=== PATIENT | female | born 1990 | race Caucasian/White ===

== ENCOUNTER 2021-01-02 06:45 | Observation (INO) ==
--- NOTE | 2021-01-02 06:55 | Emergency Department Note ---
Impression & Plan Bilateral renal colic, Hydronephrosis, PAIGE (acute kidney injury), Bilateral ureteral calculi ED Provider Note NAME: TORIN ROJAS AGE: 30 SEX: F : 1990 ARRIVES VIA: Walk-In INFORMANT: Patient, ED PROVIDER(S): Toni Rivera MD Chief Complaint: Flank pain, kidney stone HPI: Patient does present with worsening left-sided flank pain that she describes as sharp and nonradiating in the left flank. The patient denies any fevers chills but has had associated nausea that she believes is secondary to the pain. The patient was recently seen on the he did have an outpatient appointment with urology yesterday and they did discuss the possibility of placing a stent. The patient states that she is to be admitted for placement of the stent as an inpatient. The patient denies any Covid symptoms. The patient denies any recent travel or sick contacts. The patient has a known history of kidney stones for about 5 years in duration. Patient has followed with Dr. Dias most recently. The patient denies any blood in the urine. The patient had tried taking some oxycodone at home but without improvement in symptoms. The patient has not taken ibuprofen or Tylenol. The patient denies any dysuria. All PE was 1 week ago. Patient denies any alcohol or tobacco use ROS: See HPI for pertinent positives and negatives. A total of 10 systems were reviewed and otherwise negative. Past medical history: See below Surgical history: See below Social history: See below Physical Exam: GENERAL: Wearing glasses and a mask. NAD, non-toxic. EYE EXAM: Normal conjunctiva. PERRL, no anisocoria and EOM's grossly intact w/o pain. NECK: Supple, no nuchal rigidity, no adenopathy, non-tender. No signs of meningismus. LUNGS: Clear to auscultation. Normal chest wall mechanics. HEART: NSR, no MRG. ABDOMEN: Abdomen soft, left-sided flank discomfort without peritonitis, normo- active bowel sounds, no masses, no rebound or guarding. BACK: No CVA TTP. SKIN: No rashes and no bruising. UPPER EXTREMITIES: Upper extremities are grossly normal. LOWER EXTREMITIES: Grossly normal, no edema. NEURO EXAM: A&O x3, cranial nerves II-XII grossly intact, normal speech, moves all 4 extremities on command w/o issue. Differential diagnoses: Renal colic, UTI, appendicitis, diverticulitis, mesenteric ischemia, aortic pathology, infections, inflammatory bowel disease, PUD, biliary pathology, as well as other pathologies. Course: Patient was seen and evaluated the bedside. Full history physical exam was p erformed. EKG: None Imaging Studies: See below Cardiac monitoring: An order was placed for continuous cardiac monitoring. The monitor shows a rate of 72 with sinus rhythm. MDM: Patient did present with concern for flank pain. Blood work is obtained along with a CT abdomen pelvis and the patient was treated symptomatically. Covid test also ordered. Patient has a normal white counts mild anemia with a hemoglobin 11.6 with a normal platelet count. Kidney function with a creatinine 1.3. Mild PAIGE. The patient did receive IV fluids. Calcium slightly low. Urinalysis does not show obvious infection but there is blood noted. Flu Covid RSV negative. Patient does have bilateral hydronephrosis. The patient does have a right ureteral stone 1.1 x .9 cm. The patient also does have moderate left-sided hydro with multiple mid and distal left ureteral calculi measuring up to 1.2 x 0.6 cm. I did speak the on-call urologist ISAEL Mcgrath. She did discuss the patient's case with the on-call urologist and they would like the patient admitted to medicine and they will add her to the OR schedule this afternoon for a likely ureteral stent and stone retrieval. Upon reassessment of the patient the patient did have improvement in her symptoms. Patient is nonseptic do not believe she requires antibiotics at this moment and will defer to the inpatient team as needed. Patient was admitted to the medicine service by Dr. Miranda. Past Med/Surg History Medical History Anemia Kidney stone Surgical History S/P abdominoplasty 2018 S/P gastric bypass 2010, 2016 Family History Other Breast cancer Diabetes Heart disease Hypertension Social History Smoking Status: Never smoker Preferred Language: Mongolian Feels Safe at Home: Yes Allergies Allergies Allergy/AdvReac Type Severity Reaction Status Date / Time No Known Allergies Allergy Verified 01/02/21 08:26 Home Meds Home Medications Medication Instructions Recorded Confirmed clonazepam 1 mg tablet 1 mg PO DAILY PRN 03/11/20 01/02/21 escitalopram oxalate 20 mg tablet 20 mg PO HS 06/11/20 01/02/21 tamsulosin [Flomax] 0.4 mg PO DAILY PRN 12/29/20 01/02/21 Lactobac 40-Bifido 3-S.thermop 1 cap PO HS 01/02/21 01/02/21 [Probiotic] cyanocobalamin (vitamin B-12) 0 mcg PO HS 01/02/21 01/02/21 [Vitamin B-12] omega 2-qqr-npc-fish oil [Fish Oil] 1 cap PO HS 01/02/21 01/02/21 Previous Rx's Medication Instructions Recorded oxycodone 5 mg PO Q6H PRN #14 tab 12/29/20 ciprofloxacin HCl 500 mg tablet 500 mg PO BID #14 tab 01/01/21 Results & Data (ED) Vital Signs Vital Signs - 24 hr 01/02/21 06:49 01/02/21 07:33 01/02/21 08:30 Temperature 36.5 C Temperature Source Temporal Artery Scan Pulse Rate 72 Pulse Rate [Right Finger] 62 58 L Pulse Rhythm [Right Finger] Regular Regular Pulse Strength [Right Finger] Normal Normal Respiratory Rate 18 18 18 Respiratory Effort / Characteristics Non-Labored Non-Labored Spontaneous Non-Labored Spontaneous Respiratory Depth Normal Normal Normal Respiratory Pattern Regular Regular Blood Pressure 140/95 Blood Pressure [Left Arm] 115/78 116/56 L Blood Pressure Mean 110 Blood Pressure Mean [Left Arm] 90 76 Blood Pressure Position [Left Arm] Sitting Sitting Pulse Oximetry 97 97 95 Oxygen Delivery Method Room Air Room Air Room Air Sepsis Recent Fever Within 48 Hours No Sepsis New/Unexplained Change in Mental Status No Sepsis Action Taken by Nursing No Action Required 01/02/21 08:52 Temperature Temperature Source Pulse Rate Pulse Rate [Right Finger] Pulse Rhythm [Right Finger] Pulse Strength [Right Finger] Respiratory Rate Respiratory Effort / Characteristics Respiratory Depth Respiratory Pattern Blood Pressure Blood Pressure [Left Arm] Blood Pressure Mean Blood Pressure Mean [Left Arm] Blood Pressure Position [Left Arm] Pulse Oximetry 95 Oxygen Delivery Method Room Air Sepsis Recent Fever Within 48 Hours Sepsis New/Unexplained Change in Mental Status Sepsis Action Taken by Usp Medications Current Medication List: was personally reviewed by me Laboratory Data Attestation: I reviewed the patient's lab results. Result diagrams: 01/02/21 07:25 01/02/21 07:25 Lab Results 01/02/21 01/02/21 01/02/21 Range/Units 07:25 07:25 07:36 WBC 9.66 (4.8-10.8) K/uL RBC 3.79 L (4.2-5.4) M/uL Hgb 11.6 L (12.0-16.0) g/dL Hct 35.0 L (37-47) % MCV 92.3 (80-100) fL MCH 30.6 (25-34) pg MCHC 33.1 (32-36) g/dL RDW Std Deviation 42.6 (36.4-46.3) fL RDW Coeff of Isabell 12.6 (11.5-14.5) % Plt Count 344 (130-400) K/uL MPV 8.7 (7.4-10.4) fL Immature Gran % (Auto) 0.1 % Neut % (Auto) 57.8 % Lymph % (Auto) 26.5 % [place] % (Auto) 14.2 % Eos % (Auto) 1.3 % Baso % (Auto) 0.1 % Neut # (Auto) 5.58 (1.4-6.5) K/uL Lymph # (Auto) 2.56 (1.2-3.4) K/uL [place] # (Auto) 1.37 H (0.11-0.59) K/uL Eos # (Auto) 0.13 (0-0.5) K/uL Baso # (Auto) 0.01 (0-0.2) K/uL Immature Gran # (Auto) 0.01 (0.00-0.02) K/uL Sodium 139 (136-145) mmol/L Potassium 3.6 (3.5-5.1) mmol/L Chloride 107 (98-107) mmol/L Carbon Dioxide 26 (21-32) mmol/L Anion Gap 6.0 (3-11) BUN 15 (7-18) mg/dl Creatinine 1.37 H (0.6-1.2) mg/dl Est Cr Clr Drug Dosing 68.5 ml/min Est GFR ( Amer) 60.7 Est GFR (Non-Af Amer) 52.4 BUN/Creatinine Ratio 10.8 (10-20) Glucose 89 (70-99) mg/dl Calcium 8.1 L (8.5-10.1) mg/dl Total Bilirubin 0.3 (0.2-1) mg/dl AST 18 (15-37) U/L ALT 25 (12-78) U/L Alkaline Phosphatase 111 (45-117) U/L Total Protein 6.7 (6.4-8.2) gm/dl Albumin 3.2 L (3.4-5.0) gm/dl Globulin 3.5 (2.5-4.0) gm/dl Albumin/Globulin Ratio 0.9 (0.9-2) Lipase 58 L (73-393) U/L Urine Color Yellow Urine Appearance Cloudy A (Clear) Urine pH 6.0 (4.5-7.5) Ur Specific [place] 1.012 (1.000-1.030) Urine Protein 1+ H (Negative) Urine Glucose (UA) Negative (Negative) Urine Ketones Negative (Negative) Urine Blood 3+ H (Negative) Urine Nitrite Negative (Negative) Urine Bilirubin Negative (Negative) Urine Urobilinogen Negative (Negative) Ur Leukocyte Esterase 1+ H (Negative) Urine WBC (Auto) 10-30 H (0-5) /hpf Urine RBC (Auto) >30 H (0-4) /hpf U Hyaline Cast (Auto) 0 (0-5) /lpf U Epithel Cells (Auto) 10-20 H (0-5) /lpf Urine Bacteria (Auto) Negative (Negative) Urine Test (Negative) COVID-19 Eval Order SARS-CoV-2 (PCR) (Negative) Influenza Type A (PCR) (Neg) Influenza Type B (PCR) (Neg) RSV (RT-PCR) (Neg) 01/02/21 01/02/21 01/02/21 Range/Units 07:36 07:36 07:36 WBC (4.8-10.8) K/uL RBC (4.2-5.4) M/uL Hgb (12.0-16.0) g/dL Hct (37-47) % MCV (80-100) fL MCH (25-34) pg MCHC (32-36) g/dL RDW Std Deviation (36.4-46.3) fL RDW Coeff of Isabell (11.5-14.5) % Plt Count (130-400) K/uL MPV (7.4-10.4) fL Immature Gran % (Auto) % Neut % (Auto) % Lymph % (Auto) % [place] % (Auto) % Eos % (Auto) % Baso % (Auto) % Neut # (Auto) (1.4-6.5) K/uL Lymph # (Auto) (1.2-3.4) K/uL [place] # (Auto) (0.11-0.59) K/uL Eos # (Auto) (0-0.5) K/uL Baso # (Auto) (0-0.2) K/uL Immature Gran # (Auto) (0.00-0.02) K/uL Sodium (136-145) mmol/L Potassium (3.5-5.1) mmol/L Chloride (98-107) mmol/L Carbon Dioxide (21-32) mmol/L Anion Gap (3-11) BUN (7-18) mg/dl Creatinine (0.6-1.2) mg/dl Est Cr Clr Drug Dosing ml/min Est GFR ( Amer) Est GFR (Non-Af Amer) BUN/Creatinine Ratio (10-20) Glucose (70-99) mg/dl Calcium (8.5-10.1) mg/dl Total Bilirubin (0.2-1) mg/dl AST (15-37) U/L ALT (12-78) U/L Alkaline Phosphatase (45-117) U/L Total Protein (6.4-8.2) gm/dl Albumin (3.4-5.0) gm/dl Globulin (2.5-4.0) gm/dl Albumin/Globulin Ratio (0.9-2) Lipase (73-393) U/L Urine Color Urine Appearance (Clear) Urine pH (4.5-7.5) Ur Specific [place] (1.000-1.030) Urine Protein (Negative) Urine Glucose (UA) (Negative) Urine Ketones (Negative) Urine Blood (Negative) Urine Nitrite (Negative) Urine Bilirubin (Negative) Urine Urobilinogen (Negative) Ur Leukocyte Esterase (Negative) Urine WBC (Auto) (0-5) /hpf Urine RBC (Auto) (0-4) /hpf U Hyaline Cast (Auto) (0-5) /lpf U Epithel Cells (Auto) (0-5) /lpf Urine Bacteria (Auto) (Negative) Urine Test Negative (Negative) COVID-19 Eval Order [facility]Rsv at [facility] SARS-CoV-2 (PCR) NEGATIVE (Negative) Influenza Type A (PCR) Negative (Neg) Influenza Type B (PCR) Negative (Neg) RSV (RT-PCR) Negative (Neg) Administered Medications Discontinued Medications Sodium Chloride (Nss 1000ml) 1,000 mls @ 999 mls/hr IV .[id number] ONE Stop: 01/02/21 08:08 Last Infusion: 01/02/21 08:29 Dose: 0 mls/hr Documented by: [id number] Admin: 01/02/21 07:29 Dose: 999 mls/hr Documented by: [id number] Ketorolac Tromethamine (Ketorolac 30 Mg/Ml Vial) 30 mg IV NOW STA Stop: 01/02/21 07:08 Last Admin: 01/02/21 07:29 Dose: 30 mg Documented by: [id number] Morphine Sulfate (Morphine Sulfate 4 Mg/Ml 1 Ml Carp\Vial) 4 mg IV NOW STA Stop: 01/02/21 07:08 Last Admin: 01/02/21 07:29 Dose: 4 mg Documented by: [id number] Ondansetron HCl (Ondansetron Inj 2 Mg/Ml 2 Ml Vial) 4 mg IV NOW STA Stop: 01/02/21 07:08 Last Admin: 01/02/21 07:29 Dose: 4 mg Documented by: [id number] Imaging Data Radiologist's Impression: Abdomen/Pelvis CT 01/02/21 07:07 CT OF THE ABDOMEN AND PELVIS WITHOUT CONTRAST CLINICAL HISTORY: Left flank pain. COMPARISON STUDY: Renal ultrasound and KUB December 29, 2020. TECHNIQUE: Axial images of the abdomen and pelvis were obtained without IV contrast. Images were reviewed in the axial, sagittal, and coronal planes. Automated exposure control was utilized for the study. A dose lowering technique was utilized adhering to the principles of ALARA. FINDINGS: No pneumatosis, free air or portal venous gas is present. There are postoperative findings consistent with Debbi-en-Y gastric bypass. Evaluation of the abdomen and pelvis is suboptimal on this unenhanced exam. There is focal fat within the medial segment of the liver. The spleen, adrenal glands and pancreas are unremarkable. Is no evidence for a bowel obstruction. The appendix is normal. There is no lymphadenopathy. Note is made of moderate right renal atrophy. Severe right hydronephrosis is noted. There is a 1.1 x 0.9 cm distal right ureteral calculus as well as an adjacent 0.8 cm calculus. These calculi are similar in position to KUB of December 29, 2020. Note is made of moderate left hydronephrosis due to multiple mid to distal left ureteral calculi which have migrated distally since prior KUB. The largest calculus measures 1.2 x 0.6 cm. There is mild left perinephric and periureteral infiltration. No bladder calculi are present. A few left renal calculi measure up to 7 mm. IMPRESSION: 1. Severe right hydronephrosis with no significant change in position of 2 dista l right ureteral calculi that measure up to 1.1 x 0.9 cm. Moderate right renal atrophy. 2. Moderate left hydronephrosis due to multiple mid to distal left ureteral calculi that measure up to 1.2 x 0.6 cm. Distal migration of these calculi since prior KUB. 3. Left-sided nephrolithiasis. ACT 112: Negative or not required by law. Electronically signed by: Nick Azul M.D. 01/02/2021 8:07 AM Discharge Plan Visit Data Chief Complaint: Kidney Stone Stated Complaint: KIDNEY STONES,PAIN,NAUSEA ED Provider: Toni Rivera Discharge Problem: Bilateral renal colic, Hydronephrosis, PAIGE (acute kidney injury), Bilateral ureteral calculi Patient Disposition: Admitted As Inpatient Forms Stand Alone Forms: [facility] Prescriptions Prescriptions: No Action escitalopram oxalate [Lexapro] 20 mg tablet 20 mg PO HS RF: 0 ciprofloxacin HCl 500 mg tablet 500 mg PO BID Qty: 14 RF: 0 clonazepam 1 mg tablet 1 mg PO DAILY PRN (Reason: Anxiety) RF: 0 tamsulosin [Flomax] 0.4 mg Capsule 0.4 mg PO DAILY PRN (Reason: KIDNEY STONE) RF: 0 oxycodone 5 mg tablet 5 mg PO Q6H PRN (Reason: pain) Qty: 14 RF: 0 cyanocobalamin (vitamin B-12) [Vitamin B-12] 1,000 mcg Tablet 0 mcg PO HS RF: 0 omega 9-hgz-jff-fish oil [Fish Oil] 1,200 (144-216) mg Capsule 1 cap PO HS RF: 0 Probiotic 100 billion cell Capsule 1 cap PO HS RF: 0 Referrals Referrals: Regina Manuel DO [Primary Care Provider] - Discharge Problem: Hydronephrosis Qualifiers: Hydronephrosis type: unspecified Qualified Code(s): N13.30 - Unspecified hydronephrosis
[2021-01-02] MEDS ORDERED: KETOROLAC 30 MG/ML VIAL IV STA (07:07)
[2021-01-02] MEDS ORDERED: MoRPHine SULFATE 4 MG/ML 1 ML CARP\\VIAL IV STA (07:07)
[2021-01-02] MEDS ORDERED: ONDANSETRON INJ 2 MG/ML 2 ML VIAL IV STA (07:07)
[2021-01-02] MEDS ORDERED: SODIUM CHLORIDE 0.9% 1000ML 1,000 ML IV ONE (07:08)
[2021-01-02 07:43] LABS: Basophils # (auto) 0.01 K/uL (0-0.2); Basophils % (auto) 0.1 %; Eosinophils # (auto) 0.13 K/uL (0-0.5); Eosinophils % (auto) 1.3 %; Hemoglobin 11.6 g/dL (12.0-16.0); Immature Granulocytes # (auto) 0.01 K/uL (0.00-0.02); Immature Granulocytes % (auto) 0.1 %; Lymphocytes # (auto) 2.56 K/uL (1.2-3.4); Lymphocytes % (auto) 26.5 %; Mean Corpuscular Hemoglobin 30.6 pg (25-34); Mean Corpuscular Hgb Conc 33.1 g/dL (32-36); Mean Corpuscular Volume 92.3 fL (80-100); Mean Platelet Volume 8.7 fL (7.4-10.4); Monocytes # (auto) 1.37 K/uL (0.11-0.59); Monocytes % (auto) 14.2 %; Neutrophils # (auto) 5.58 K/uL (1.4-6.5); Neutrophils % (auto) 57.8 %; Platelet Count 344 K/uL (130-400); RDW Coefficient of Variation 12.6 % (11.5-14.5); RDW Standard Deviation 42.6 fL (36.4-46.3); Red Blood Count 3.79 M/uL (4.2-5.4); White Blood Count 9.66 K/uL (4.8-10.8)
[2021-01-02 07:56] LABS: Appearance Urine Cloudy (Clear); Bacteria Urine Automated Negative (Negative); Bilirubin Urine Negative (Negative); Blood Urine 3+ (Negative); Color Urine Yellow; Glucose Urine UA Negative (Negative); Ketones Urine Negative (Negative); Leukocyte Esterase Urine 1+ (Negative); Nitrite Urine Negative (Negative); Protein Urine 1+ (Negative); RBC Urine Automated >30 /hpf (0-4); Specific Gravity Urine 1.012 (1.000-1.030); Urobilinogen Urine Negative (Negative)
[2021-01-02 07:59] LABS: Albumin Level 3.2 gm/dl (3.4-5.0); BUN Creatinine Ratio 10.8 (10-20); Calcium 8.1 mg/dl (8.5-10.1); Creatinine Clr Calc Pharmacy 68.5 ml/min; Est GFR (African American) 60.7; Est GFR (Non-African American) 52.4; Potassium 3.6 mmol/L (3.5-5.1)
[2021-01-02 08:02] LABS: Albumin Globulin Ratio 0.9 (0.9-2); Bilirubin,Total 0.3 mg/dl (0.2-1); Globulin 3.5 gm/dl (2.5-4.0); Total Protein 6.7 gm/dl (6.4-8.2)
[2021-01-02 08:08] LABS: Cast Urine Automated 0 /lpf (0-5)
--- NOTE | 2021-01-02 08:08 | CT Scan Report ---
CT OF THE ABDOMEN AND PELVIS WITHOUT CONTRAST CLINICAL HISTORY: Left flank pain. COMPARISON STUDY: Renal ultrasound and KUB December 29, 2020. TECHNIQUE: Axial images of the abdomen and pelvis were obtained without IV contrast. Images were revi ewed in the axial, sagittal, and coronal planes. Automated exposure control was utilized for the tripp dy. A dose lowering technique was utilized adhering to the principles of ALARA. FINDINGS: No pneumatosis, free air or portal venous gas is present. There are postoperative findings consistent with Debbi-en-Y gastric bypass. Evaluation of the abdomen and pelvis is suboptimal on this unenhanced exam. There is focal fat within the medial segment of the liver. The spleen, adrenal gland s and pancreas are unremarkable. Is no evidence for a bowel obstruction. The appendix is normal. Ther e is no lymphadenopathy. Note is made of moderate right renal atrophy. Severe right hydronephrosis is noted. There is a 1.1 x 0.9 cm distal right ureteral calculus as well as an adjacent 0.8 cm calculus. These calculi are simil ar in position to KUB of December 29, 2020. Note is made of moderate left hydronephrosis due to multiple mid to distal left ureteral calculi which have migrated distally since prior KUB. The largest calcul us measures 1.2 x 0.6 cm. There is mild left perinephric and periureteral infiltration. No bladder ca lculi are present. A few left renal calculi measure up to 7 mm. IMPRESSION: 1. Severe right hydronephrosis with no significant change in position of 2 distal right ureteral calc james that measure up to 1.1 x 0.9 cm. Moderate right renal atrophy. 2. Moderate left hydronephrosis due to multiple mid to distal left ureteral calculi that measure up t o 1.2 x 0.6 cm. Distal migration of these calculi since prior KUB. 3. Left-sided nephrolithiasis. ACT 112: Negative or not required by law. Electronically signed by: Nick Azul M.D. 01/02/2021 8:07 AM
[2021-01-02 08:28] LABS: Influenza A virus by PCR Negative (Neg); Influenza B virus by PCR Negative (Neg); RSV by PCR Negative (Neg); SARS CoV2 RNA(COVID-19) InHosp NEGATIVE (Negative)
[2021-01-02 08:59] LABS: Pregnancy Test, Urine Negative (Negative)
[2021-01-02] MEDS ORDERED: ATROPINE SULFATE 0.1 MG/ML 10ML SYR IV PRN (09:26)
[2021-01-02] MEDS ORDERED: fentaNYL citrate 100 MCG/2 ML VIAL IV PRN (09:26)
[2021-01-02] MEDS ORDERED: ePHEDrine sulfate 50 MG/ML AMP IV PRN (09:26)
[2021-01-02] MEDS ORDERED: ONDANSETRON INJ 2 MG/ML 2 ML VIAL IV PRN ×2 (09:26→15:52)
[2021-01-02] MEDS ORDERED: DEXAMETHASONE SOD INJ 4 MG/ML VIAL ONE (09:29)
[2021-01-02] MEDS ORDERED: PROPOFOL IV EMULSION 10 MG/ML 20 ML VIAL IV ONE (09:29)
[2021-01-02] MEDS ORDERED: ONDANSETRON INJ 2 MG/ML 2 ML VIAL ONE (09:29)
[2021-01-02] MEDS ORDERED: fentaNYL citrate 100 MCG/2 ML VIAL ONE (09:29)
[2021-01-02] MEDS ORDERED: LIDOCAINE HCL 2% 2 ML VIAL/AMP(20MG/ML) INFIL ONE (09:29)
--- NOTE | 2021-01-02 09:47 | History & Physical Report ---
Date of Service January 02, 2021 Assessment & Plan (1) Bilateral hydronephrosis: 30 yo F with hx anxiety, nephrolithiasis admitted for bilateral hydronephrosis, nephrolithiasis and ureteral calculi. 1. BL hydronephrosis 2/2 nephrolithisis s/p stent placement - CT A/P : - Severe right hydronephrosis with no significant change in position of 2 distal right ureteral calculi that measure up to 1.1 x 0.9 cm. Moderate right renal atrophy. - Moderate left hydronephrosis due to multiple mid to distal left ureteral calculi that measure up to 1.2 x 0.6 cm. Distal migration of these calculi since prior KUB. - Left-sided nephrolithiasis. - stent placement in OR by urology - pain control with morphine, oxy - zofran for nausea, tamsulosin - IVF - cefazolin Q8 Anxiety - cont escitalopram - cont clonazepam 1 mg po daily prn for severe anxiety DVT ppx: C/I after procedure FEN/GI: regular diet, IVF Code Status: full code Dispo: med/surg, possible discharge in AM pending continued improvement (2) Bilateral nephrolithiasis: (3) Bilateral ureteral calculi: (4) Anemia: (5) Anxiety: History of Present Illness 30 yo F with hx kidney stones, anxiety brought to ER for severe flank pain. Recently saw urology who recommended stent placement for relief of obstruction. Pain started Wednesday on left flank and has progressively worsened. Also attests to nausea, vomiting. Denies fevers or chills. Denies coffee ground, bloody or bilious emesis. No diarrhea. No weakness, fatigue. No dizziness, lightheadedness. No pain with urination but attests to uneven stream. Does feel the pain on left side has moved from mid-abdomen to just above left inguinal canal. ER course significant for CT A/P showing BL mod-severe hydronephrosis with BL nephrolithiasis, progression of some L sided stones that have passed distally compared to KUB on 12/29. Received 4 mg morphine, 30 mg toradol, 4 mg zofran, 1L NS bolused in ER. Patient taken to OR for stent placement with urology at completion of interview. Primary Care Provider: Regina Manuel DO Allergies Allergy/AdvReac Type Severity Reaction Status Date / Time No Known Allergies Allergy Verified 01/02/21 08:26 Home Medications Medication Instructions Recorded Confirmed Type clonazepam 1 mg tablet 1 mg PO DAILY PRN 03/11/20 01/02/21 History escitalopram oxalate 20 mg tablet 20 mg PO HS 06/11/20 01/02/21 History oxycodone 5 mg PO Q6H PRN #14 tab 12/29/20 01/02/21 Rx tamsulosin [Flomax] 0.4 mg PO DAILY PRN 12/29/20 01/02/21 History ciprofloxacin HCl 500 mg tablet 500 mg PO BID #14 tab 01/01/21 01/02/21 Rx Lactobac 40-Bifido 3-S.thermop 1 cap PO HS 01/02/21 01/02/21 History [Probiotic] cyanocobalamin (vitamin B-12) 0 mcg PO HS 01/02/21 01/02/21 History [Vitamin B-12] omega 8-jib-nrv-fish oil [Fish Oil] 1 cap PO HS 01/02/21 01/02/21 History Past Med/Surg History Medical History Anemia Kidney stone Surgical History S/P abdominoplasty 2018 S/P gastric bypass 2016 Family History Other Breast cancer Diabetes Heart disease Hypertension Social History Smoking Status: Never smoker Preferred Language: Kittitian Feels Safe at Home: Yes Assistive Devices: Glasses Review of Systems Review of Systems: All systems reviewed & are unremarkable except as noted in Subjective Physical Exam Physical Exam: Constitutional: in no apparent distress, sitting comfortably in bed, not ill appearing Eyes: EOMI, pupils equal and reactive bilaterally, no scleral icterus Cardiac: RRR, no murmurs, gallops or rubs. Normal S1, S2 Pulm: CTA BL, no wheezes, rhonchi, crackles or rubs, moving air well throughout both lungs Abd: soft, TTP at LLQ, nondistended, normal bowel sounds, no rebound or guarding Back: +L>R CVA tenderness Extremities: 2+ peripheral pulses, no edema Neuro: no focal deficits, moving all 4 limbs, A&Ox3 Results & Data Results & Data ([facility]) Vital Signs (Past 12 Hours) Vital Signs Temp Pulse Pulse Resp BP BP Pulse Ox 01/02/21 09:41 62 62 18 103/70 103/70 99 01/02/21 08:52 95 01/02/21 08:30 58 L 18 116/56 L 95 01/02/21 07:33 62 18 115/78 97 01/02/21 06:49 36.5 C 72 18 140/95 97 Laboratory Results WBC 9.66 K/uL (4.8-10.8) 01/02/21 07:25 RBC 3.79 M/uL (4.2-5.4) L 01/02/21 07:25 Hgb 11.6 g/dL (12.0-16.0) L 01/02/21 07:25 Hct 35.0 % (37-47) L 01/02/21 07:25 MCV 92.3 fL (80-100) 01/02/21 07:25 MCH 30.6 pg (25-34) 01/02/21 07:25 MCHC 33.1 g/dL (32-36) 01/02/21 07:25 RDW Std Deviation 42.6 fL (36.4-46.3) 01/02/21 07:25 RDW Coeff of [place]abell 12.6 % (11.5-14.5) 01/02/21 07:25 Plt Count 344 K/uL (130-400) 01/02/21 07:25 MPV 8.7 fL (7.4-10.4) 01/02/21 07:25 Immature Gran % (Auto) 0.1 % 01/02/21 07:25 Neut % (Auto) 57.8 % 01/02/21 07:25 Lymph % (Auto) 26.5 % 01/02/21 07:25 [place] % (Auto) 14.2 % 01/02/21 07:25 Eos % (Auto) 1.3 % 01/02/21 07:25 Baso % (Auto) 0.1 % 01/02/21 07:25 Neut # (Auto) 5.58 K/uL (1.4-6.5) 01/02/21 07:25 Lymph # (Auto) 2.56 K/uL (1.2-3.4) 01/02/21 07:25 [place] # (Auto) 1.37 K/uL (0.11-0.59) H 01/02/21 07:25 Eos # (Auto) 0.13 K/uL (0-0.5) 01/02/21 07:25 Baso # (Auto) 0.01 K/uL (0-0.2) 01/02/21 07:25 Immature Gran # (Auto) 0.01 K/uL (0.00-0.02) 01/02/21 07:25 Sodium 139 mmol/L (136-145) 01/02/21 07:25 Potassium 3.6 mmol/L (3.5-5.1) 01/02/21 07:25 Chloride 107 mmol/L (98-107) 01/02/21 07:25 Carbon Dioxide 26 mmol/L (21-32) 01/02/21 07:25 Anion Gap 6.0 (3-11) 01/02/21 07:25 BUN 15 mg/dl (7-18) 01/02/21 07:25 Creatinine 1.37 mg/dl (0.6-1.2) H 01/02/21 07:25 Est Cr Clr Drug Dosing 68.5 ml/min 01/02/21 07:25 Est GFR ( Amer) 60.7 01/02/21 07:25 Est GFR (Non-Af Amer) 52.4 01/02/21 07:25 BUN/Creatinine Ratio 10.8 (10-20) 01/02/21 07:25 Glucose 89 mg/dl (70-99) 01/02/21 07:25 Calcium 8.1 mg/dl (8.5-10.1) L 01/02/21 07:25 Total Bilirubin 0.3 mg/dl (0.2-1) 01/02/21 07:25 AST 18 U/L (15-37) 01/02/21 07:25 ALT 25 U/L (12-78) 01/02/21 07:25 Alkaline Phosphatase 111 U/L (45-117) 01/02/21 07:25 Total Protein 6.7 gm/dl (6.4-8.2) 01/02/21 07:25 Albumin 3.2 gm/dl (3.4-5.0) L 01/02/21 07:25 Globulin 3.5 gm/dl (2.5-4.0) 01/02/21 07:25 Albumin/Globulin Ratio 0.9 (0.9-2) 01/02/21 07:25 Lipase 58 U/L (73-393) L 01/02/21 07:25 Urine Color Yellow 01/02/21 07:36 Urine Appearance Cloudy (Clear) A 01/02/21 07:36 Urine pH 6.0 (4.5-7.5) 01/02/21 07:36 Ur Specific [place] 1.012 (1.000-1.030) 01/02/21 07:36 Urine Protein 1+ (Negative) H 01/02/21 07:36 Urine Glucose (UA) Negative (Negative) 01/02/21 07:36 Urine Ketones Negative (Negative) 01/02/21 07:36 Urine Blood 3+ (Negative) H 01/02/21 07:36 Urine Nitrite Negative (Negative) 01/02/21 07:36 Urine Bilirubin Negative (Negative) 01/02/21 07:36 Urine Urobilinogen Negative (Negative) 01/02/21 07:36 Ur Leukocyte Esterase 1+ (Negative) H 01/02/21 07:36 Urine WBC (Auto) 10-30 /hpf (0-5) H 01/02/21 07:36 Urine RBC (Auto) >30 /hpf (0-4) H 01/02/21 07:36 U Hyaline Cast (Auto) 0 /lpf (0-5) 01/02/21 07:36 U Epithel Cells (Auto) 10-20 /lpf (0-5) H 01/02/21 07:36 Urine Bacteria (Auto) Negative (Negative) 01/02/21 07:36 Urine Test Negative (Negative) 01/02/21 07:36 COVID-19 Eval Order CovFluRsv at [facility] 01/02/21 07:36 SARS-CoV-2 (PCR) NEGATIVE (Negative) 01/02/21 07:36 Influenza Type A (PCR) Negative (Neg) 01/02/21 07:36 Influenza Type B (PCR) Negative (Neg) 01/02/21 07:36 RSV (RT-PCR) Negative (Neg) 01/02/21 07:36 Impressions Abdomen/Pelvis CT 01/02/21 07:07 CT OF THE ABDOMEN AND PELVIS WITHOUT CONTRAST CLINICAL HISTORY: Left flank pain. COMPARISON STUDY: Renal ultrasound and KUB December 29, 2020. TECHNIQUE: Axial images of the abdomen and pelvis were obtained without IV contrast. Images were reviewed in the axial, sagittal, and coronal planes. Automated exposure control was utilized for the study. A dose lowering technique was utilized adhering to the principles of ALARA. FINDINGS: No pneumatosis, free air or portal venous gas is present. There are postoperative findings consistent with Debbi-en-Y gastric bypass. Evaluation of the abdomen and pelvis is suboptimal on this unenhanced exam. There is focal fat within the medial segment of the liver. The spleen, adrenal glands and pancreas are unremarkable. Is no evidence for a bowel obstruction. The appendix is normal. There is no lymphadenopathy. Note is made of moderate right renal atrophy. Severe right hydronephrosis is noted. There is a 1.1 x 0.9 cm distal right ureteral calculus as well as an adjacent 0.8 cm calculus. These calculi are similar in position to KUB of December 29, 2020. Note is made of moderate left hydronephrosis due to multiple mid to distal left ureteral calculi which have migrated distally since prior KUB. The largest calculus measures 1.2 x 0.6 cm. There is mild left perinephric and periureteral infiltration. No bladder calculi are present. A few left renal calculi measure up to 7 mm. IMPRESSION: 1. Severe right hydronephrosis with no significant change in position of 2 distal right ureteral calculi that measure up to 1.1 x 0.9 cm. Moderate right renal atrophy. 2. Moderate left hydronephrosis due to multiple mid to distal left ureteral calculi that measure up to 1.2 x 0.6 cm. Distal migration of these calculi since prior KUB. 3. Left-sided nephrolithiasis. ACT 112: Negative or not required by law. Electronically signed by: Nick Azul M.D. 01/02/2021 8:07 AM Supervising Physician Co-Signing Physician Notes Attending attestation Pt seen and examined in concert with Dr. Alaniz. In agreement with the documented findings as noted in the resident documentation with any exceptions or additions as noted here. Resting comfortably in bed without abdominal pain reported. Has not urinated postprocedure as yet. On examination, S1/S2 nl RRR no MCG. CTAB. Abd NT/ND BS+ve Bilateral nephrolithaisis with bilateral hydronephrosis s/p stent placement/stone removal POD#0 - continue IV abx, hydration. Monitor for fever, repeat BMP in AM. Else see resident documentation as noted. Resident Activity Tracking Resident Involvement: Resident Care Provided Care Provided: Adult [facility]
--- NOTE | 2021-01-02 09:59 | Urology Consultation ---
Date of Consultation January 02, 2021 Assessment & Plan (1) Bilateral ureteral calculi: (2) Bilateral hydronephrosis: (3) Renal colic on left side: (4) PAIGE (acute kidney injury): 30yo F admitted with intractable left flank pain, nausea, and acute kidney injury in the setting of bilateral ureteral calculi with associated bilateral hydronephrosis - ER records, labs, and CT imaging reviewed - She is afebrile, VSS, non-toxic appearing. - Labs reviewed, Wbc normal and creatinine mildly elevated to 1.37 - Discussed options for stone treatment. She is agreeable to proceeding with surgical intervention today. - Plan of care reviewed with Dr. Benedict, on-call urologist - Given her intractable left flank pain, hydronephrosis, and acute kidney injury in the context of obstructing bilateral ureteral calculi, will proceed with OR for Cystoscopy, Bilateral Ureteronephroscopy, possible stone treatment and bilateral stent placement depending on findings. Risks and benefits to be reviewed with patient by Dr. Benedict. OR notified. Will cover with IV Cipro preoperatively. Covid test negative. - Expected clinical course reviewed with patient, all questions were answered. - Keep NPO for procedure later today Attending Note: agree with above after independently evaluated and assessed. The patient is dealing with bilateral obstruction and PAIGE. Risks and benefits discussed at length for procedure. These include bleeding, infection, injury to surrounding tissues or organs, and risks associated with anesthesia. Patient states understanding and agrees to proceed. Will sign consent and schedule. Plan for urgent bilateral ureteroscopy and stone management with stents. History of Present Illness Reason for Consultation: bilateral ureteral calculi Attending Physician: Deny Benedict, II, DO History of Present Illness 30yo F who presented to the ER today with complaints of worsening left flank pain with associated nausea. CT abdomen pelvis remarkable for bilateral ureteral calculi with bilateral hydronephrosis. Patient known to urology service. She was evaluated yesterday in clinic. See office note for further details. Past medical and surgical history reviewed. History was significant for anemia and nephrolithiasis. Surgical history is notable for gastric bypass 2010 and 2017 and abdominoplasty in 2019. The patient states she has a personal history of kidney stones since 2018 and last passed one . She denies any surgical intervention in the past. She states she hasn't seen a urologist in the past. Chart review: Afebrile Wbc 9.66 Hgb 11.6 Cr 1.[address] abdomen pelvis IMPRESSION: 1. Severe right hydronephrosis with no significant change in position of 2 distal right ureteral calculi that measure up to 1.1 x 0.9 cm. Moderate right renal atrophy. 2. Moderate left hydronephrosis due to multiple mid to distal left ureteral calculi that measure up to 1.2 x 0.6 cm. Distal migration of these calculi since prior KUB. 3. Left-sided nephrolithiasis. Pt examined at bedside this morning in the preoperative holding area. She reports her pain has improved with IV pain medication given in ED. She denies fevers or chills. No nausea or vomiting. She has been NPO since midnight. She denies hematuria/dysuria. She does report some urinary frequency. Denies urgency. Feels her stream is weak. She is unsure if she is emptying her bladder completely. Not currently on any anticoagulants. Offers no additional complaints at this time Allergies Allergy/AdvReac Type Severity Reaction Status Date / Time No Known Allergies Allergy Verified 01/02/21 08:26 Home Medications Medication Instructions Recorded Confirmed Type clonazepam 1 mg tablet 1 mg PO DAILY PRN 03/11/20 01/02/21 History escitalopram oxalate 20 mg tablet 20 mg PO HS 06/11/20 01/02/21 History oxycodone 5 mg PO Q6H PRN #14 tab 12/29/20 01/02/21 Rx tamsulosin [Flomax] 0.4 mg PO DAILY PRN 12/29/20 01/02/21 History ciprofloxacin HCl 500 mg tablet 500 mg PO BID #14 tab 01/01/21 01/02/21 Rx Lactobac 40-Bifido 3-S.thermop 1 cap PO HS 01/02/21 01/02/21 History [Probiotic] cyanocobalamin (vitamin B-12) 0 mcg PO HS 01/02/21 01/02/21 History [Vitamin B-12] omega 0-dqr-whr-fish oil [Fish Oil] 1 cap PO HS 01/02/21 01/02/21 History Patient History Medical History Anemia Kidney stone Surgical History S/P abdominoplasty 2018 S/P gastric bypass 2010, 2016 Family History Other Breast cancer Diabetes Heart disease Hypertension Social History Smoking Status: Never smoker Preferred Language: Belarusian Feels Safe at Home: Yes Review of Systems Review of Systems: All systems reviewed & are unremarkable except as noted in HPI & below Physical Exam Constitutional: well developed and well nourished; no acute distress Neck: normal visual inspection Respiratory: no respiratory distress and no labored breathing Cardiovascular: Extremities: no calf tenderness Gastrointestinal (Abdomen): Inspection/Auscultation: abdomen not distended Percussion/Palpation: + abdomen tender (mild left sided tendernes with palpation) and abdomen soft; no guarding Musculoskeletal: Head/Neck/Chest: normocephalic and head atraumatic Skin: no rashes, warm and dry Neurologic: awake Psychiatric: A+Ox3, euthymic affect Genitourinary: + CVA tenderness (mild left) Results & Data ([facility]) Vital Signs (Past 12 Hours) Vital Signs Temp Pulse Pulse Resp BP BP Pulse Ox 01/02/21 09:41 62 62 18 103/70 103/70 99 01/02/21 08:52 95 01/02/21 08:30 58 L 18 116/56 L 95 01/02/21 07:33 62 18 115/78 97 01/02/21 06:49 36.5 C 72 18 140/95 97 PG Care Time/CCT Total # of Minutes Spent Total Time Spent with Patient: Total time spent is greater than 50% in coordination of care (as documented) at patient's floor/unit and/or counseling patient: Coding Level of Care Code 35296 Inpt Consult Level 5 Diagnoses Bilateral ureteral calculi N20.1 Bilateral hydronephrosis N13.30 Renal colic on left side N23 PAIGE (acute kidney injury) N17.9
--- NOTE | 2021-01-02 10:06 | Anesthesiology Consultation ---
Date of Service January 02, 2021 Assessment & Plan (1) Encounter for pre-operative examination: Chart Review Chart Review: Acceptable Risk for Surgery Consults Requested none ASA ASA2 Proposed Anesthesia Anesthesia Type: General Risk / Benefits Reviewed With: PT / POA / Parent / Guardian, Accepts Plan and Informed Consent Obtained History Surgery Operation Date: 01/02/21 14:55 Proposed Procedures p Cystoscopy, Ureteroscopy, Retrograde Pyelogram, Laser Lithotripsy, Bilateral Stent Placements - Deny Benedict DO Height/Weight Height: 5 ft 4 in Weight: 95.5 kg Allergies Allergy/AdvReac Type Severity Reaction Status Date / Time No Known Allergies Allergy Verified 01/02/21 08:26 Medications Home Medications Medication Instructions Recorded Confirmed Last Taken clonazepam 1 mg tablet 1 mg PO DAILY PRN 03/11/20 01/02/21 Unknown escitalopram oxalate 20 mg tablet 20 mg PO HS 06/11/20 01/02/21 01/01/21 oxycodone 5 mg PO Q6H PRN #14 tab 12/29/20 01/02/21 01/01/21 22:30 5 mg tamsulosin [Flomax] 0.4 mg PO DAILY PRN 12/29/20 01/02/21 01/01/21 12:00 ciprofloxacin HCl 500 mg tablet 500 mg PO BID #14 tab 01/01/21 01/02/21 01/01/21 23:00 Lactobac 40-Bifido 3-S.thermop 1 cap PO HS 01/02/21 01/02/21 01/01/21 [Probiotic] cyanocobalamin (vitamin B-12) 0 mcg PO HS 01/02/21 01/02/21 01/01/21 [Vitamin B-12] omega 1-nce-mcg-fish oil [Fish Oil] 1 cap PO HS 01/02/21 01/02/21 01/01/21 NPO Date Last Intake of Fluids: 01/01/21 Time Last Intake of Fluids: 23:30 Date Last Intake of Solids: 01/01/21 Time Last Intake of Solids: 22:00 Past Medical History Medical History Anemia Kidney stone Exercise / Class Metabolic Activity II 4-5 Yardwork/Stairs/Walk up hill Past Family History Family History Other Breast cancer Diabetes Heart disease Hypertension Past Surgical History Surgical History S/P abdominoplasty 2019 S/P gastric bypass 2010, 2016 Past Anesthesia History No Hx of Anesthesia Complications and No Family Hx of Anesthesia Complications History of PONV No Hx of PONV and No Hx of Motion Sickness Social History Smoking Status: Never smoker Physical Exam Vital Signs Last Vital Signs Temp 97.5 F L 01/02/21 09:48 Pulse 60 01/02/21 09:48 Resp 20 01/02/21 09:48 BP 102/87 01/02/21 09:48 Pulse Ox 97 01/02/21 09:48 ENMT Mouth: no dentition abnormality Thyromental Distance: > or= 3.5 Finger Breadths Mallampati Class: II Neck normal visual inspection Respiratory normal respiratory effort Auscultation: lungs clear to auscultation bilaterally Cardiovascular Rate/Rhythm: regular rate and regular rhythm Testing Laboratory Results 01/02/21 07:25 01/02/21 07:25 Urine Color Yellow 01/02/21 07:36 Urine Appearance Cloudy (Clear) A 01/02/21 07:36 Urine pH 6.0 (4.5-7.5) 01/02/21 07:36 Ur Specific [place] 1.012 (1.000-1.030) 01/02/21 07:36 Urine Protein 1+ (Negative) H 01/02/21 07:36 Urine Glucose (UA) Negative (Negative) 01/02/21 07:36 Urine Ketones Negative (Negative) 01/02/21 07:36 Urine Nitrite Negative (Negative) 01/02/21 07:36 Ur Leukocyte Esterase 1+ (Negative) H 01/02/21 07:36 Urine WBC (Auto) 10-30 /hpf (0-5) H 01/02/21 07:36 Urine RBC (Auto) >30 /hpf (0-4) H 01/02/21 07:36 U Hyaline Cast (Auto) 0 /lpf (0-5) 01/02/21 07:36 U Epithel Cells (Auto) 10-20 /lpf (0-5) H 01/02/21 07:36 Urine Bacteria (Auto) Negative (Negative) 01/02/21 07:36 Urine Test Negative (Negative) 01/02/21 07:36 01/02/21 07:36 Urine Test Negative
[2021-01-02] MEDS ORDERED: CIPROFLOXACIN / D5W 400 MG/200 ML BAG IV SCH (10:25)
[2021-01-02] MEDS ORDERED: ceFAZolin 2,000 MG/15 ML IV PUSH IV ONE (10:38)
[2021-01-02] MEDS ORDERED: ceFAZolin 2000MG 2,000 MG/15 ML SYR IV ONE (10:40)
[2021-01-02] MEDS ORDERED: PHENYLEPHRINE 100MCG/ML 5ML SYR ONE (11:17)
[2021-01-02] MEDS ORDERED: ePHEDrine sulfate 50 MG/ML AMP ONE (11:17)
[2021-01-02] MEDS ORDERED: DIATRIZOATE MEGLUMINE 30% 100ML VIAL INSTIL ONE (11:42)
--- NOTE | 2021-01-02 11:53 | Operative Report ---
[facility] Post Operative Report Pre & Post Diagnosis Operation Date: 01/02/21 14:55 Pre-Op Diagnosis: Bilateral ureteral calculi; Bilateral hydronephrosis; Renal colic on left side; PAIGE (acute kidney injury): Post-Op Diagnosis: Bilateral ureteral calculi; Bilateral hydronephrosis; Renal colic on left side; PAIGE (acute kidney injury): I identified the patient and participated in the time-out.: Yes Procedure Operation Date: 01/02/21 14:55 Actual Procedures p Cystoscopy, Right Ureteroscopy, Ureteral Dilation, Laser Lithotripsy and Stone Basket Extraction; Left Aspiration; Bilateral Retrograde Pyelogram, Bilateral Stent Placements(Bilateral) - Deny Benedict DO Surgeon Deny Benedict II, DO Valve Pipe Irrigator None Estimated Blood Loss 1 Findings Consistent with Post-Op Diagnosis Severe bilateral obstruction. Stone destroyed to dust and small fragments and larger fragments removed. Specimens Stone Fragments Right ureter Urine Left Renal Pelvis. Drains 6 Fr Multilength Bilateral Anesthesia Type General Complications none Disposition Disposition: Recovery Room Indications Patient with bothersome stones and bilateral obstructing stones. Urgent pro cedure due to PAIGE. Risks and benefits discussed at length. Description of Procedure Patient was consented and brought back to the operating room. Patient was placed under anesthesia in the supine position and moved to the dorsal lithotomy position. Patient was prepped and draped in the regular sterile fashion. A time out was completed. A 30degree Cystoscope was placed into the bladder and the entire bladder was examined. The UO's were identified. The Left UO was cannulized with a catheter and a retrograde pyelogram was completed. A wire was then placed. The urine from the left renal pelvis was aspirated and sent for analysis. A 6 Fr Multilength stent was placed and confirmed with Fluoroscopy. The Right UO was cannulized with a catheter and a retrograde pyelogram was completed. A wire was then placed. The stone was significantly obstructing and difficult to manipulate past. The Rigid ureteroscope was taken into the ureter. The stone was identified. A laser fiber was selected and the stones were pulverized to dust and small fragments. Larger fragments were grasped and removed and sent for analysis. The stone was severely impacted and considerable irritation and damage appeared where the stone had impacted in the mid/distal ureter. The entire area was once again examined. No residual large fragments or areas of concern were noted. The scope was slowly removed with the wire left in place. Contrast was placed through the scope for a pyelogram to assist in stent placement. The entire ureter was examined as the scope was slowly removed. No obstructions or other areas of concern were noted. With the wire in place, a 6 Fr Double J stent was placed. It was confirmed with fluoroscopy. With the stent in place, the bladder was emptied. The scope was removed. The patient was cleaned, aroused from anesthesia, and transferred to the pacu in stable condition having tolerated the procedure well with no com plications. I was present and participated in all aspects of the procedure. The patient will be monitored in the PACU until transferred. I attest to the content of the Intraoperative Record and any orders documented therein. Any exceptions are noted below.
--- NOTE | 2021-01-02 12:32 | Anesthesiology Progress Note ---
Date of Service January 02, 2021 Anesthesia Post Procedure Vital Signs Vital Signs: Temp Pulse Pulse Pulse Resp BP BP 01/02/21 12:25 69 16 119/77 01/02/21 12:15 70 17 130/86 01/02/21 12:05 79 21 131/83 01/02/21 11:56 97.0 F L 86 14 148/80 H 01/02/21 09:48 97.5 F L 60 20 102/87 01/02/21 09:41 62 62 18 103/70 103/70 01/02/21 08:52 01/02/21 08:30 58 L 18 116/56 L 01/02/21 07:33 62 18 115/78 01/02/21 06:49 97.7 F 72 18 140/95 Pulse Ox 01/02/21 12:25 93 01/02/21 12:15 95 01/02/21 12:05 99 01/02/21 11:56 94 01/02/21 09:48 97 01/02/21 09:41 99 01/02/21 08:52 95 01/02/21 08:30 95 01/02/21 07:33 97 01/02/21 06:49 97 Pain Intensity Left Abdomen: Pain Intensity: 0 Transfer of Care Handoff Completed per policy Notes Mental Status: alert / awake / arousable and participated in evaluation Patient Amnestic to Procedure: Yes Nausea / Vomiting: adequately controlled Pain: adequately controlled Airway Patency, RR, SpO2: stable & adequate BP & HR: stable & adequate Hydration State: stable & adequate Anesthetic Complications: no major complications apparent and Pt Satisfied with anesthetic care
--- NOTE | 2021-01-02 12:40 | Fluoroscopy Report ---
FL retrograde includes kub CLINICAL HISTORY: Bilateral stent placement. Right-sided laser lithotripsy COMPARISON STUDY: KUB dated 12/29/2020 FLUOROSCOPY TIME: 37 seconds. NUMBER OF FLUOROSCOPIC IMAGES: 14 FINDINGS: 14 intraprocedural fluoroscopic spot images were obtained during a bilateral retrograde tripp dy with right-sided laser lithotripsy. There is right-sided hydronephrosis and hydroureter. Final feliberto ges demonstrate placement of bilateral double pigtail nephroureteral stents. IMPRESSION: Intraprocedural fluoroscopic spot images obtained during a bilateral retrograde study wi th stent placement. ACT 112: Negative or not required by law. Electronically signed by: George Johnson M.D. 01/02/2021 12:39 PM
[2021-01-02] MEDS ORDERED: clonazePAM 1 MG TAB PO PRN (14:34)
[2021-01-02] MEDS ORDERED: TAMSULOSIN HCL 0.4 MG CAP PO PRN (14:34)
[2021-01-02] MEDS ORDERED: oxyCODONE HCL IR 5 MG TAB (IMMEDIATE RELEASE) PO PRN (14:34)
[2021-01-02] MEDS ORDERED: POLYETHYLENE (MIRALAX) 17 GM PACK PO PRN (15:52)
[2021-01-02] MEDS ORDERED: ACETAMINOPHEN 325 MG TAB PO PRN (15:52)
[2021-01-02] MEDS ORDERED: PHENAZOPYRIDINE HCL 200 MG TAB PO STA (18:50)
[2021-01-02] MEDS: SODIUM CHLORIDE 0.9% 1000ML 1,000 ML IV SCH (19:56)
[2021-01-02] MEDS ORDERED: ADVANCED PROBIOTIC 1250 MG CAPSULE PO SCH (21:00)
[2021-01-02] MEDS ORDERED: OMEGA-3 (PURIFIED FISH OIL) 1 GM CAP PO SCH (21:00)
[2021-01-02] MEDS ORDERED: ESCITALOPRAM OXALATE 20 MG TAB PO SCH (21:00)
[2021-01-02] MEDS ORDERED: MELATONIN 3 MG TAB PO PRN (21:31)
[2021-01-02] MEDS: ceFAZolin 2000MG 2,000 MG/15 ML SYR IV SCH (21:53)
[2021-01-03] MEDS: SODIUM CHLORIDE 0.9% 1000ML 1,000 ML IV SCH ×2 (04:02→12:38)
[2021-01-03] MEDS: ceFAZolin 2000MG 2,000 MG/15 ML SYR IV SCH ×2 (04:03→11:49)
--- NOTE | 2021-01-03 08:13 | Discharge Summary ---
Date of Service January 03, 2021 Admission HPI Per Admitting Provider 30 yo F with hx kidney stones, anxiety brought to ER for severe flank pain. Recently saw urology who recommended stent placement for relief of obstruction. Pain started Wednesday on left flank and has progressively worsened. Also attests to nausea, vomiting. Denies fevers or chills. Denies coffee ground, bloody or bilious emesis. No diarrhea. No weakness, fatigue. No dizziness, lightheadedness. No pain with urination but attests to uneven stream. Does feel the pain on left side has moved from mid-abdomen to just above left inguinal canal. ER course significant for CT A/P showing BL mod-severe hydronephrosis with BL nephrolithiasis, progression of some L sided stones that have passed distally compared to KUB on 12/29. Received 4 mg morphine, 30 mg toradol, 4 mg zofran, 1L NS bolused in ER. Patient taken to OR for stent placement with urology at completion of interview. Primary Care Provider: Regina Manuel DO Admission Exam Per Admitting Provider Constitutional: in no apparent distress, sitting comfortably in bed, not ill appearing Eyes: EOMI, pupils equal and reactive bilaterally, no scleral icterus Cardiac: RRR, no murmurs, gallops or rubs. Normal S1, S2 Pulm: CTA BL, no wheezes, rhonchi, crackles or rubs, moving air well throughout both lungs Abd: soft, TTP at LLQ, nondistended, normal bowel sounds, no rebound or guarding Back: +L>R CVA tenderness Extremities: 2+ peripheral pulses, no edema Neuro: no focal deficits, moving all 4 limbs, A&Ox3 Principal Diagnosis Bilateral hydronephrosis and PAIGE secondary to bilateral ureteral colliculi Discharge Data Allergies Allergy/AdvReac Type Severity Reaction Status Date / Time No Known Allergies Allergy Verified 01/02/21 08:26 Consultations 01/02/21 09:31 ED Decision to Admit Stat Procedures Performed Operation Date: 01/02/21 14:55 Actual Procedures p Laser Lithotripsy and Stone Basket Extraction; (Bilateral) - Deny Benedict DO s Bilateral Stent Placements(Bilateral) - Deny Benedict DO s Bilateral Retrograde Pyelogram, Cystoscopy, Right Ureteroscopy, Ureteral Dilation,(Bilateral) - Deny Benedict DO Ordered Studies 01/02/21 07:07 CT abd pelvis wo con Stat 01/02/21 11:00 FL retrograde includes kub Routine Hospital Course (1) Bilateral hydronephrosis: 30 yo F with hx anxiety, nephrolithiasis admitted for bilateral hydronephrosis, nephrolithiasis and ureteral calculi. #BL hydronephrosis 2/2 nephrolithisis s/p stent placement On admission CT A/P demonstrating Severe right hydronephrosis with no signi ficant change in position of 2 distal right ureteral calculi that measure up to 1.1 x 0.9 cm. Moderate right renal atrophy. Moderate left hydronephrosis due to multiple mid to distal left ureteral calculi that measure up to 1.2 x 0.6 cm. Distal migration of these calculi since prior KUB. Left-sided nephrolithiasis. Urology consulted recommending stone extraction and stent placement, patient tolerated the procedure well. On the day of discharge patient met all of her postoperative milestones, and was discharged to complete a course of ciprofloxacin. She has a previous prescription for ciprofloxacin at home provided by her outpatient neurologist, she is to continue taking his medication twice daily until no pills remaining. Additionally she has been prescribed oxybutynin 1 pill daily, and Pyridium every 8 hours for spasm and bladder irritation. Urology will be prescribing Percocet for pain control. -Follow-up with urology as an outpatient for stent removal #Anxiety - cont escitalopram - cont clonazepam 1 mg po daily prn for severe anxiety Rogelio Romero MD PGY 2, FCM This chart was completed utilizing [employer] voice recognition software. Grammatical errors, random word insertions, pronoun errors, and in complete sentences are an occasional consequence of the system. Any questions or concerns about the content, text, or information contained within the body of this dictation should be addressed directly to the physician for clarification. (2) Bilateral nephrolithiasis: (3) Bilateral ureteral calculi: (4) Anemia: (5) Anxiety: Total Time Total Time Spent Total Time Spent (In Minutes): 20 Discharge Plan Discharge Items Patient Disposition: Home - Self-Care Reason For Visit: NEPHROLITHIASIS,HYDRONEPHROSIS Discharge Diagnosis: Bilateral hydronephrosis and PAIGE secondary to bilateral ureteral colliculi Activity: Resume your previous activity Non-emergency contact: Primary Care Provider and Urologist Call non-emergency contact if: your symptoms worsen, your pain is not controlled and your temperature is above 101 Follow-up/Referrals: Regina Manuel, [Primary Care Provider] - Diet: Regular Addtl Attending Provider Instructions: Care instructions: You were admitted to [facility] for treatment of bilateral ureteral caliculi and bilateral hydronephrosis (bilateral kidney stones and swelling of your kidneys). Your evaluated by urology who recommended surgical intervention and were successful at removing the kidney stones. While performing surgery they also inserted a stent, this will be removed at their office as an outpatient. Upon discharge you were to continue taking your previously prescribed ciprofloxacin 2 times per day until no more pills remaining. Additionally we have called in a prescription for oxybutynin please take 1/day as needed and Pyridium please take every 8 hours as needed for pain/irritation/bladder spasms. These medications have been called into the [facility]. A discharge summary will be sent to your primary care physician to ensure continuity of care. Please bring this discharge summary with you to your next office appointment so that your provider can review it at that time. Follow-up appointments: - Keep all your follow-up appointments as already scheduled. If you cannot make an appointment, notify your provider. - Please call to request a follow-up appointment with your primary care ph ysician within one week of discharge. Please let us know if you are unable to obtain an appointment Medications: - Your medication list has been reviewed and reconciled upon discharge to ensure accuracy and continuity of care. - You are provided with a list of all your current medications at this time. Please review this list closely and make note of any changes. - Please take all of your medications exactly as prescribed. - Tell your primary care provider if you cannot afford your medications. - Call your primary care provider if you are having any side effects or any other problems. - Call your primary care provider before taking any over the counter medications or supplements, including herbals and vitamins, because some of these may interact with your current medications and/or make your symptoms worse. Symptoms: Please call your primary care provider for symptoms including, but not limited to: fevers (temperatures greater than 100.4), chills, intractable nausea or vomiting, diarrhea, rash, shortness of breath, bleeding, pain, or if you experience any worsening of the symptoms that brought you to the hospital. For EMERGENCY and VERY SERIOUS health-related issues, such as chest pain, shortness of breath, or sudden onset of the symptoms that brought you to the hospital, you may need to call 911 or go directly to the Emergency Room It has been our privilege to take care of you during your hospital stay. And Above All Else Feel Better! Best Wishes, Rogelio Romero MD PGY2 Resident, Family & Community Medicine [facility] Residency at [facility] - [address], [address] MC: [place] [address] Pending Studies at Discharge: No Stand-Alone Forms: My [facility], Smoking Cessation Medications and DC Order Prescriptions: New oxybutynin chloride 10 mg tablet extended release 24hr 10 mg PO DAILY Qty: 10 RF: 0 phenazopyridine [Pyridium] 200 mg tablet 200 mg PO Q8H PRN (Reason: pain) 5 Days Qty: 15 RF: 0 Continued escitalopram oxalate [Lexapro] 20 mg tablet 20 mg PO HS RF: 0 ciprofloxacin HCl 500 mg tablet 500 mg PO BID Qty: 14 RF: 0 clonazepam 1 mg tablet 1 mg PO DAILY PRN (Reason: Anxiety) RF: 0 tamsulosin [Flomax] 0.4 mg Capsule 0.4 mg PO DAILY PRN (Reason: KIDNEY STONE) RF: 0 oxycodone 5 mg tablet 5 mg PO Q6H PRN (Reason: pain) Qty: 14 RF: 0 cyanocobalamin (vitamin B-12) [Vitamin B-12] 1,000 mcg Tablet 0 mcg PO HS RF: 0 omega 7-cvm-sca-fish oil [Fish Oil] 1,200 (144-216) mg Capsule 1 cap PO HS RF: 0 Probiotic 100 billion cell Capsule 1 cap PO HS RF: 0 Discharge Orders: Discharge Order (Routine); Ordered 01/03/21 Ordered By: Rogelio Romero Admission Data Admit Date/Time: 01/02/21 09:42 Attending Provider: Azeem Munson Admit Provider: Onesimo Lyons Primary Care Provider: Regina Manuel Other Providers: Maria Luz Alaniz ; Anthony Miranda Other Interventions: Discharge Summary Assessment (RN) Last Done: 01/03/21 12:12 Supervising Physician Co-Signing Physician Notes I saw the patient concurrent with the resident physician and confirmed wilson portions of the history and physical examination. I agree with the impression and plan as noted in the resident discharge documentation. Upon our exam, the patient was seated in bed. She was smiling. She denied pain. She was looking forward to discharge. Urology has recommended completion of outpatient antibiotics previously prescribed along with oxybutynin and Pyridium as needed. Urology will arrange appropriate outpatient follow-up for definitive stone treatment. The patient was comfortable with this plan. Resident Activity Tracking Resident Involvement: Resident Care Provided Care Provided: Adult [facility] Medicine
--- NOTE | 2021-01-03 09:51 | Urology Progress Note ---
Date of Service January 03, 2021 Assessment & Plan (1) Bilateral ureteral calculi: 30 yo F POD #1 s/p Cystoscopy, Right Ureteroscopy, Ureteral Dilation, Laser Lithotripsy and Stone Basket Extraction; Left Aspiration; Bilateral Stent Placements with Dr. Benedict. - Doing well, progressing as expected - Afebrile, VSS, no new labs at time of visit - ordered BMP, CBC for review - Tolerating bilateral ureteral stents with minimal bother - Patient feels ready for discharge today, okay for discharge from standpoint when medically stable - Reviewed procedure and operative findings with patient - Left kidney aspirate culture is pending - Recommend course of PO antibiotics (can continue outpatient course as directed), prn Oxybutynin, prn Pyridium, and prn pain medication upon discharge - Expected clinical course reviewed, all questions answered - Will arrange appropriate outpatient follow-up with our service for definitive stone treatment Thank you for allowing us to participate in the acute care of Ms. Arellano. Please reconsult us with additional questions, concerns or changes in patient status. Admission and Anticipated Discharge Date Admission Date: January 02, 2021 Subjective 30 yo F POD #1 s/p Cystoscopy, Right Ureteroscopy, Ureteral Dilation, Laser Lithotripsy and Stone Basket Extraction; Left Aspiration; Bilateral Stent Placements with Dr. Benedict. Patient awake and sitting up in bed. No issues overnight. Reports she is feeling much better today. Notes some discomfort on left flank during urination and then improves. Voiding without difficulty. Mild dysuria and hematuria, urine clearing some today. Tolerating diet, no nausea or vomiting. + flatus. No fever or chills. Chart review: Afebrile, no new labs at time of exam, left kidney aspirate and stone analysis pending. On IV Ancef. No additional concerns today. Review of Systems Constitutional: as per Subjective / HPI Gastrointestinal: as per Subjective / HPI Genitourinary: as per Subjective / HPI Physical Exam Constitutional: well developed, well nourished and + obese; no acute distress and not ill appearing Neck: normal visual inspection and trachea midline Respiratory: normal respiratory effort and able to speak in complete sentences; no respiratory distress and no labored breathing Cardiovascular: Extremities: no pedal edema Gastrointestinal (Abdomen): Inspection/Auscultation: abdomen normal to inspection; abdomen not distended Percussion/Palpation: abdomen soft; abdomen nontender and no guarding Musculoskeletal: Head/Neck/Chest: normocephalic and head atraumatic Extremities: extremities normal to inspection Skin: no rashes, warm and dry Neurologic: moves all extremities and awake Psychiatric: A+Ox3, euthymic affect Genitourinary: no CVA tenderness Results & Data ([facility]) Vital Signs (Past 12 Hours) Vital Signs Temp Pulse Resp BP BP Pulse Ox 01/03/21 07:42 36.6 C 71 16 118/78 94 01/03/21 03:33 36.7 C 71 16 117/75 95 01/02/21 22:30 36.8 C 57 L 16 106/67 95 PG Care Time/CCT Total # of Minutes Spent Total Time Spent with Patient: Total time spent is greater than 50% in coordination of care (as documented) at patient's floor/unit and/or counseling patient: Coding Level of Care Code 76267 Subseq Hosp Care Lvl 2 Diagnoses Bilateral ureteral calculi N20.1
[2021-01-03 10:31] LABS: Basophils # (auto) 0.01 K/uL (0-0.2); Basophils % (auto) 0.1 %; Eosinophils # (auto) 0.06 K/uL (0-0.5); Eosinophils % (auto) 0.6 %; Hematocrit (blood only) 32.3 % (37-47); Immature Granulocytes # (auto) 0.02 K/uL (0.00-0.02); Immature Granulocytes % (auto) 0.2 %; Lymphocytes # (auto) 2.47 K/uL (1.2-3.4); Lymphocytes % (auto) 23.3 %; Mean Corpuscular Hemoglobin 31.3 pg (25-34); Mean Corpuscular Hgb Conc 34.1 g/dL (32-36); Mean Platelet Volume 8.9 fL (7.4-10.4); Monocytes # (auto) 1.56 K/uL (0.11-0.59); Monocytes % (auto) 14.7 %; Neutrophils # (auto) 6.48 K/uL (1.4-6.5); Neutrophils % (auto) 61.1 %; Platelet Count 350 K/uL (130-400); RDW Coefficient of Variation 12.9 % (11.5-14.5); RDW Standard Deviation 43.6 fL (36.4-46.3); Red Blood Count 3.51 M/uL (4.2-5.4)
[2021-01-03 11:10] LABS: BUN Creatinine Ratio 13.3 (10-20); Calcium 7.9 mg/dl (8.5-10.1); Creatinine Clr Calc Pharmacy 72.2 ml/min; Est GFR (African American) 64.7; Est GFR (Non-African American) 55.8; Potassium 3.6 mmol/L (3.5-5.1)
[2021-01-07 14:59] LABS: Component 2 DNR; Source RIGHT URETERAL STONE
== END 2021-01-03 12:39 | disposition home or self-care (01) ==
LOC: ED 06:45 → OR 09:41 → 3W 09:41 → SUATTDRO 09:42